=== PATIENT | female | born 1955 | race Two or more races ===

== ENCOUNTER 2025-02-01 12:42 | Emergency (ER) | payer OTHER ==
[~2025-02-01] VITALS: Ht 147.3 cm; Wt 56.7 kg
[2025-02-01] MEDS ORDERED: COZAAR25 MG PO (12:55)
[2025-02-01] MEDS ORDERED: CRESTOR40 MG PO (12:55)
[2025-02-01] MEDS ORDERED: DEXAMETHASONE SODIUM PHOSPHATE 4 MG/ML VIAL IM ONE (13:15)
[2025-02-01] MEDS ORDERED: ENALAPRILAT DIHYDRATE 1.25 MG/ML VIAL IV ONE ×2 (13:15→14:23)
[2025-02-01] MEDS ORDERED: DIPHENHYDRAMINE HCL 50 MG/ML VIAL 1ML IM ONE (13:15)
[2025-02-01] MEDS ORDERED: ORPHENADRINE CITRATE 30 MG/ML AMPUL IM ONE (13:15)
[2025-02-01] MEDS ORDERED: CEFTRIAXONE SODIUM 1,000 MG VIAL IM ONE (13:15)
[2025-02-01] MEDS ORDERED: DIPHENHYDRAMINE HCL 50 MG/ML VIAL 1ML ONE (14:23)
[2025-02-01] MEDS ORDERED: CEFTRIAXONE SODIUM 1,000 MG VIAL ONE (14:24)
[2025-02-01] MEDS ORDERED: DEXAMETHASONE SODIUM PHOSPHATE 4 MG/ML VIAL ONE (14:24)
[2025-02-01] MEDS ORDERED: ORPHENADRINE CITRATE 30 MG/ML AMPUL ONE (14:33)
[2025-02-01] MEDS ORDERED: LIDOCAINE HCL/MPF 1% 5ML VIAL IJ ONE (14:36)
[2025-02-01 15:05] LABS: BASO % 0.3 % (0.1-1.2); EOS # 0.06 (0.04-0.54); EOS % 0.6 % (0.7-7.0); LYMPH # 2.87 (1.18-3.74); LYMPH % 29.9 % (19.3-53.1); MEAN PLATELET VOLUME 9.10 fl (9.4-12.4); MONO # 0.63 (0.24-0.82); MONO % 6.6 % (4.7-12.5); NEUT # 5.99 (1.56-6.13); NEUT % 62.3 % (34.0-71.1); RED CELL DISTRIBUTION WIDTH 14.8 % (11.6-14.4)
[2025-02-01 15:23] LABS: COVID-19 AG NEGATIVE (NEGATIVE)
[2025-02-01 15:25] LABS: INR 1.03
[2025-02-01 15:27] LABS: BUN CREA RATIO 15.0 (7.0-25.0); CREATININE SERUM 0.72 mg/dL (0.55-1.02); GFR 79.85; GLUCOSE FASTING 93.0 mg/dL (65-100); OSMOLALITY SERUM 284.0 MOSM/KG (275-295)
[2025-02-01] MEDS ORDERED: AMOX-CLAV 875-1 EACH PO (16:28)
[2025-02-01] MEDS ORDERED: CORTISPORIN EAR10 M1 OPHT (16:28)
== END 2025-02-01 16:49 | disposition home or self-care (01) ==
LOC: ER 12:42
PROVIDERS: General Practice
DX: I10 Essential (primary) hypertension (principal); H66.91 Otitis media, unspecified, right ear; J06.9 Acute upper respiratory infection, unspecified; R00.2 Palpitations; Z20.822 Contact with and (suspected) exposure to COVID-19
CPT/HCPCS: 36415; 93005; 96365; 96372; 99282; J0696; J1100; J2360; J3490

== ENCOUNTER 2025-03-05 08:50 | Emergency (ER) | payer OTHER ==
[~2025-03-05] VITALS: Ht 147.3 cm; Wt 55.3 kg
[~2025-03-05 08:50] MED LIST: AMOX-CLAV 875-1 EACH PO; CORTISPORIN EAR10 M1 OPHT; COZAAR25 MG PO; CRESTOR40 MG PO
[2025-03-05 09:59] VITALS: BP 188/79; O2SAT 100
[2025-03-05] MEDS ORDERED: ENALAPRILAT DIHYDRATE 1.25 MG/ML VIAL IV ONE ×2 (10:30→11:39)
[2025-03-05] MEDS ORDERED: FAMOTIDINE/PF 20 MG/2 ML VIAL IV ONE (10:45)
[2025-03-05] MEDS ORDERED: FAMOTIDINE/PF 20 MG/2 ML VIAL ONE (11:40)
[2025-03-05 13:29] LABS: ALT/SGPT 19.0 U/L (12-78); AST/SGOT 12.0 U/L (15-37); BILIRUBIN TOTAL 0.91 mg/dL (0.3-1.2); BUN CREA RATIO 16.0 (7.0-25.0); CREATININE SERUM 0.68 mg/dL (0.55-1.02); GFR 85.29; GLOBULINA 4.3 G/DL (2.4-3.5); GLUCOSE FASTING 93.0 mg/dL (65-100); OSMOLALITY SERUM 282.0 MOSM/KG (275-295)
[2025-03-05 13:32] LABS: BASO % 0.4 % (0.1-1.2); EOS # 0.03 (0.04-0.54); EOS % 0.3 % (0.7-7.0); LYMPH # 2.85 (1.18-3.74); LYMPH % 27.8 % (19.3-53.1); MEAN PLATELET VOLUME 9.30 fl (9.4-12.4); MONO # 0.62 (0.24-0.82); MONO % 6.0 % (4.7-12.5); NEUT # 6.69 (1.56-6.13); NEUT % 65.2 % (34.0-71.1); RED CELL DISTRIBUTION WIDTH 14.1 % (11.6-14.4)
[2025-03-05 13:40] LABS: INR 1.0
[2025-03-05 15:31] LABS: URINE APPEARANCE Clear; URINE BILIRRUBIN Negative (NEGATIVE); URINE BLOOD Negative; URINE COLOR Yellow; URINE GLUCOSE Negative (NEGATIVE); URINE KETONE Negative (NEGATIVE); URINE LEUKOCYTE Trace; URINE NITRATE Negative; URINE PROTEIN Negative (NEGATIVE); URINE UROBILINOGEN 0.2 E.U./dl
[2025-03-05 15:36] LABS: URINE EPITHELIAL CELLS 36.0 uL (0.0-38.8); URINE RBC 10.7 uL (0.0-20.8); URINE WBC 55.3 uL (0.0-23.2)
[2025-03-05 15:59] LABS: TYPE CELLS SQUAMOUS; URINE BACTERIA > 9821.5 uL (0.0-1933); URINE CAST 0.28 uL (0.0-1.40)
== END 2025-03-05 16:43 | disposition home or self-care (01) ==
LOC: ER 08:51
DX: D32.9 Benign neoplasm of meninges, unspecified (principal); I10 Essential (primary) hypertension; R20.2 Paresthesia of skin; R11.0 Nausea; R10.13 Epigastric pain